=== PATIENT | female | born 1945 | race Caucasian/White ===

== ENCOUNTER → 2016-11-22 | Outpatient (CLI) | payer MEDICARE ==
[~2016-11-22] MED LIST: ALEN70TA47 PO; CALC-696 PO; CETI10CA PO; CHOL200044 PO; LETR2.5T PO; LOVA20TA2 PO; METF500T4 PO; MULT-1026 PO; MULT1TAB PO; OMEG1CAP58 PO
--- NOTE | 2016-11-22 17:33 | Diagnostic Imaging Report ---
INDICATION: Digital screening. The current study was also evaluated with a Computer Aided Detection (CAD) system. COMPARISON: October 2015, September 2014, and September 2013. FINDINGS: Unilateral right mammogram is stable and negative. There is no mass, spiculated lesion, architectural distortion, suspicious calcifications, or interval changes. A localization biopsy clip on the right is in stable alignment. IMPRESSION: Stable negative mammogram. ACR BI-RADS Category 1: Negative. Result letter will be mailed to the patient. Note: At least 10% of breast cancer is not imaged by mammography. Dictated by: Dictated on workstation # [id number]
== END ==
LOC: RAD 08:58
PROVIDERS: ATTEND Family Medicine
DX: Z12.31 Encounter for screening mammogram for malignant neoplasm of breast (principal)